=== PATIENT | female | born 1955 | race African-American/Black ===

== ENCOUNTER 2021-01-30 18:59 | Emergency (ER) | payer SELFPAY ==
[~2021-01-30] VITALS: Ht 167.6 cm; Wt 104.0 kg
[2021-01-30 19:01] VITALS: BP 140/78
[2021-01-30 20:45] LABS: BASOPHILS % 0.5 % (0.0-2.0); EOSINOPHILS % 0.8 % (0.0-5.0); HEMATOCRIT. 42.3 % (36.0-48.0); HEMOGLOBIN. 14.1 g/dL (12.0-16.0); LYMPHOCYTES % 22.3 % (20.0-50.0); MEAN CORPUSCULAR HEMOGLOBIN 29.6 pg (28.0-32.0); MEAN CORPUSCULAR VOLUME 88.8 fL (81.0-99.0); MEAN PLATELET VOLUME 10.1 fl (7.4-10.4); MONOCYTES % 5.8 % (2.0-8.0); NEUTROPHILS % 70.6 % (40.0-76.0); PLATELET 155 x1000/uL (130-400); RED BLOOD CELL COUNT 4.76 mill/uL (4.2-5.4); RED CELL DISTRIBUTION WIDTH 13.7 % (11.6-14.6)
[2021-01-30 20:52] LABS: CHLORIDE 108 mEq/L (98-107)
[2021-01-30 20:58] LABS: ETHANOL BLOOD < 10 mg/dL
[2021-01-30 21:56] LABS: *AMPHETAMINES SCREEN URINE NEGATIVE (NEGATIVE); *BARBITURATES SCREEN URINE NEGATIVE (NEGATIVE); *BENZODIAZEPINES SCREEN URINE NEGATIVE (NEGATIVE)
[2021-01-30 21:57] LABS: CANNABINOID URINE SCREEN NEGATIVE (NEGATIVE); METHADONE URINE SCREEN NEGATIVE (NEGATIVE); OPIATES URINE SCREEN NEGATIVE (NEGATIVE); PHENCYCLIDINE URINE SCREEN NEGATIVE (NEGATIVE)
[2021-01-30 21:59] LABS: *COCAINE SCREEN URINE NEGATIVE (NEGATIVE)
== END 2021-01-31 01:09 | disposition home or self-care (01) ==
LOC: ER 18:59
DX: Z59.00 Homelessness unspecified (principal); I10 Essential (primary) hypertension; Z20.822 Contact with and (suspected) exposure to COVID-19
CPT/HCPCS: 36415; 80053; 80305; 80320; 85025; 99283; C9803; U0003; U0005; G0480